=== PATIENT | male | born 1975 | race Caucasian/White ===

== ENCOUNTER → 2023-03-15 | Outpatient (CLI) | payer SELFPAY, OTHER ==
--- NOTE | 2023-03-15 09:30 | MRI_ITS ---
STUDY: MRI LEFT KNEE REASON FOR EXAM: Male, 48 years old. Pain, rule out medial meniscal tear. TECHNIQUE: Standardized fat and water weighted pulse sequences were obtained in all 3 orthogonal planes. COMPARISON: Left knee radiographs dated 11/16/2022. FINDINGS: There is degenerative free edge tearing of the posterior horn of the medial meniscus. There is mild peripheral subluxation of the body of the medial meniscus. There is moderate to severe degenerative arthrosis of the medial femorotibial compartment with joint space narrowing, marginal osteophyte formation, moderate to high-grade chondromalacia, and subchondral marrow edema on both sides of the joint. Normal medial collateral ligamentous complex (MCL). Normal distal semimembranosus, gracilis and semitendinosus tendons. Normal lateral meniscus. Normal hyaline cartilage of the lateral femorotibial compartment. Normal lateral femoral condyle and tibial plateau. Normal proximal tibiofibular articulation. Normal lateral collateral (fibular) ligament. Normal popliteus tendon. Normal biceps femoris tendon. Normal anterior cruciate ligament (ACL). Normal posterior cruciate ligament (PCL). Normal congruent patellofemoral articulation. Normal hyaline cartilage of the patellofemoral compartment. Normal medial and lateral patellar retinaculum. Normal quadriceps tendon. Normal patellar tendon. Normal Hoffa''s fat pad. There is a small joint effusion. There is no popliteal cyst. The soft tissues are unremarkable. There is no acute fracture. MRI/Lower Ext Joint Only (Routine) IMPRESSION: Degenerative free edge tearing of the posterior horn of the medial meniscus. Mild peripheral subluxation of the body of the medial meniscus. Moderate to severe degenerative arthrosis of the medial femorotibial compartment. Small joint effusion. Electronically Signed: Shawn Solano MD at 11:45 EDT ,
--- NOTE | 2023-03-15 09:30 | MRI_ITS ---
STUDY: MRI RIGHT KNEE REASON FOR EXAM: Male, 48 years old. Pain, rule out medial meniscal tear. TECHNIQUE: Standardized fat and water weighted pulse sequences were obtained in all 3 orthogonal planes. COMPARISON: Right knee radiographs dated 11/16/2022. FINDINGS: There is degenerative free edge tearing of the body and posterior horn of the medial meniscus. There is degenerative arthrosis of the medial femorotibial compartment with joint space narrowing, marginal osteophyte formation, moderate to high-grade chondromalacia, and subchondral marrow edema on both sides of the joint. Normal medial collateral ligamentous complex (MCL). Normal distal semimembranosus, gracilis and semitendinosus tendons. Normal lateral meniscus. Normal hyaline cartilage of the lateral femorotibial compartment. There is minimal osteoarthritic spur formation of the lateral knee compartment. Normal proximal tibiofibular articulation. Normal lateral collateral (fibular) ligament. Normal popliteus tendon. Normal biceps femoris tendon. Normal anterior cruciate ligament (ACL). Normal posterior cruciate ligament (PCL). There is low-grade chondromalacia along the femoral trochlea. Congruent patellofemoral articulation. Normal medial and lateral patellar retinaculum. Normal quadriceps tendon. Normal patellar tendon. Normal Hoffa''s fat pad. There is a small joint effusion. There is no popliteal cyst. The soft tissues are unremarkable. There is no acute fracture. MRI/Lower Ext Joint Only (Routine) IMPRESSION: Degenerative free edge tearing of the body and posterior horn of the medial meniscus. 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 Small joint effusion. Electronically Signed: Shawn Solano MD at 11:37 EDT ,
== END | disposition home or self-care (01) ==
PROVIDERS: PCP Family Medicine; Referring Provider Orthopaedic Surgery Sports Medicine; Visit Provider Orthopaedic Surgery Sports Medicine
DX: M25.562 Pain in left knee (principal); M25.561 Pain in right knee
CPT/HCPCS: 73721

== ENCOUNTER 2024-02-29 12:50 | Emergency (ER) | payer OTHER, SELFPAY ==
[2024-02-29 12:51] VITALS: BP 144/99; PULSE 86; RESP 22; TEMP 36.6; O2SAT 93; BMI 42.4
[2024-02-29 13:18] LABS: White Blood Cells 0 SEEN /hpf (0-5)
[2024-02-29 13:20] LABS: Absolute Lymphocyte Count 1.18 X10^3/uL (0.83-4.51); Absolute Neutrophil Count 12.4 X10^3/uL (2.0-7.7); Basophil# 0.03 X10^3/uL; Basophil% 0.2 % (0-1); Eosinophil# 0.03 X10^3/uL; Eosinophils% 0.2 % (0-5); Hematocrit 45.3 % (40-54); Hemoglobin 14.5 g/dL (13.0-16.5); Lymphocyte # 1.18 X10^3/ul (0.83-4.51); Lymphocyte % 8.3 % (19-41); Mean Corpuscular Hgb 27.7 pg (27.0-32.0); Mean Corpuscular Volume 86.5 fL (80-94); Mean Platelet Vol. 9.8 fl (6.2-12.0); Monocyte# 0.55 X10^3/uL; Monocyte% 3.8 % (0-10); NRBC Flagged by Analyzer 0 % (0-5); Neutrophil # 12.44 X10^3/uL (2.7-7.7); Neutrophil % 87.1 % (47-70); Platelet Count 257 K/mm3 (150-450); RBC Distribution Width CV 13.8 % (11.6-14.6); RBC Distribution Width SD 44.1 fl (35.1-43.9); Red Blood Count 5.24 M/mm3 (4.6-6.2); White Blood Count 14.3 K/mm3 (4.4-11.0)
[2024-02-29 13:39] LABS: AST(SGOT) 13 U/L (15-37); Alanine Aminotransfer ALT/SGPT 9 U/L (16-61); Albumin, Serum 3.8 g/dL (3.2-5.0); Alkaline Phosphatase 113 U/L (45-117); Anion Gap 6 (5-15); BUN 18 mg/dL (7-18); BUN/Creat Ratio 16.1 RATIO (10-20); Calcium,Total 9.8 mg/dL (8.5-10.1); Chloride 103 mmol/L (98-107); Creatinine, Serum 1.12 mg/dL (0.70-1.30); EST Glomerular Filtration Rate 74 mL/min (>60); Est Glom Filt Rate - Afr Amer 90 mL/min (>60); Estimated Creatinine Clearance 97.05 ml/min; Globulin 3.9 g/dL (2.2-4.2); Glucose 165 mg/dL (74-106); Potassium 3.9 mmol/L (3.5-5.1); Protein, Total 7.7 g/dL (6.4-8.2); Sodium Level 135 mmol/L (136-145)
[2024-02-29 13:43] LABS: Color, Urine Yellow (Yellow); Glucose, Dipstick Normal (Normal); Ketone-Dipstick Negative (Negative); Leukocyte Esterase-Dipstick Negative /ul (Negative); Nitrite-Dipstick Negative (Negative); Occult Blood-Urine 250 /ul (Negative); Protein-Dipstick 30 mg/dl (Negative); Specific Gravity, Urine 1.015 (1.002-1.030); Urine Bilirubin Dipstick Negative (Negative); Urine Clarity Clear (Clear); Urine Urobilinogen Normal (Normal)
[2024-02-29 13:56] LABS: Bacteria 1+ /hpf (None Seen); Mucous, Urine 2+ /hpf (<or=2+); Red Blood Cells-Urine 5-10 SEEN /hpf (0-5); Squamous Epithelial Cells - UA 0-5 SEEN /hpf (0-5)
[2024-02-29 14:10] VITALS: BP 140/86; PULSE 86; RESP 18
--- NOTE | 2024-02-29 14:27 | CT_ITS ---
STUDY: CT ABDOMEN AND PELVIS WITH CONTRAST REASON FOR EXAM: Male, 49 years old. RLQ, RUQ pain RADIATION DOSAGE (If Supplied By Facility): CTDIvol = ( 18.64 ) mGy, DLP = ( 1288.79 ) mGycm TECHNIQUE: Transaxial images were obtained from the dome of the diaphragm to the symphysis pubis without oral contrast. IV 100mL Isovue-370 was administered. Sagittal and coronal images were reconstructed. Individualized dose optimization techniques were used for this CT. COMPARISON: None. FINDINGS: The visualized lung bases show mild atelectasis or scarring. The visualized portions of the heart are within normal limits. Normal liver. Normal gallbladder and extrahepatic biliary system. Normal spleen. Normal pancreas. Normal bilateral adrenal glands. Normal right kidney. Normal left kidney. Evaluation of the GI tract is limited by absence of oral contrast. Cannot exclude stomach wall thickening. No dilated loops of bowel or evidence for obstruction. Cannot exclude segmental thickening of the huertas of the small or large bowel. Cannot exclude enteritis or colitis. Moderate diffuse fecal retention. Appendix within normal limits. Normal abdominal aorta. Normal inferior vena cava. Normal retroperitoneum. Normal urinary bladder. Normal abdominal wall. Normal osseous structures. CT/Abdomen/Pelvis W IV Cont ONLY IMPRESSION: No definite acute or significant abnormality seen. Electronically Signed: Dragan Car MD at 15:13 EDT ,
--- NOTE | 2024-02-29 14:28 | EDS_ITS ---
HPI HPI - GI History of Present Illness Chief Complaint: Abd Pain Narrative Narrative: 49-year-old male presents with abdominal pain that began around 11:00 this morning. This was 3-1/2 hours ago. He relates history that earlier this morning he was walking in the [place] and fell onto his stomach. He did not have pain then. He was not feeling well after he had a bowel movement. He might have been near syncopal, and was having a lot of abdominal pain that improved. They state that while he had surgery on his knee a few months ago, he does have past medical history of biliary sludge, and had hernia repair around his umbilicus. He denies any dysuria or hematuria, no problems with diarrhea or blood in his bowel movement. He states his abdominal pain is improving and better than what it was few hours ago. No exacerbating or alleviating factors. He states he usually can take diln-wjz-kblwzdx medications and it improves, but today it did not. PFSH PFSH Allergy/AdvReac Type Severity Reaction Status Date / Time No Known Allergies Allergy Verified 02/29/24 12:51 Social History Smoking Status: Never smoker ROS ROS ED ROS Narrative Constitutional: No fever, no chills. HEENT: No sore throat. No neck pain. No loss of vision. No rhinorrhea. Cardiovascular: No chest pain. No palpitations. No pedal edema. Respiratory: No cough, no shortness of breath. Abdominal: Right upper quadrant to epigastric and right lower quadrant abdominal pain. Positive nausea. No vomiting. No diarrhea. Genitourinary: No dysuria. No hematuria. Musculoskeletal: No myalgias. No arthralgias. Neurologic: No headaches. No dizziness. Mild lightheadedness. Skin: No rash. No change in color. Psychiatric: No depression. No anxiety. EXAM Physical Exam Narrative Exam Narrative: Afebrile. Vital signs noted. Nontoxic-appearing. Regular rate and rhythm. Lungs clear to auscultation bilaterally. Abdomen soft with mild tenderness to palpation in the epigastrium to right upper quadrant but negative Hollins sign. Mild tenderness in right lower quadrant as well, no guarding or rebound. Positive bowel sounds. Neurological examination nonfocal and nonlateralizing. Const Vital Signs: 02/29/24 12:51 02/29/24 14:10 02/29/24 15:08 Temperature 97.9 F Temperature Source Oral Pulse Rate 86 86 89 Respiratory Rate 22 H 18 18 Blood Pressure 144/99 H 140/86 H 122/75 H Blood Pressure Mean 114 104 90 Pulse Ox 93 Oxygen Delivery Method Room Air MDM MDM MDM Narrative Medical decision making narrative: Differential diagnosis includes but not limited to acute appendicitis versus diverticulitis versus cholecystitis versus ureterolithiasis versus nonspecific abdominal pain. I reviewed the laboratory work entered by RN protocol. He has slight leukocytosis of 14.3 which he think is nonspecific, hemoglobin 14.5 with hematocrit 45.3. CMP is significant for an AST low at 13 with ALT also low at 9 and alk phos normal at 113. Glucose is elevated at 165 with a normal anion gap of 6. BUN normal at 18 with creatinine 1.12, no dehydration. Urinalysis is negative for infection with 0 WBCs. I do not feel antibiotics are indicated. I will add a lipase I do feel that the patient merits CT of the abdomen pelvis with IV contrast to rule out appendicitis and to take a closer look at the gallbladder to make sure that is not distended. I reviewed his lipase and it is normal so I doubt pancreatitis. I reviewed the radiology report of the CTA of the abdomen and pelvis which shows moderate fecal retention, but no acute process, no obstruction. Appendix is visualized and appears normal. There is no distention of the gallbladder. I do not feel he requires right upper quadrant ultrasounding. Upon repeat examination at approximately 1555, he states he feels improved. I feel he can be discharged safely home with follow-up to his primary care provider. He was told he may want to start an [id number] stool softener and/or MiraLAX. Return instructions to the emergency department were reviewed. Disposition is discharged home in stable condition. History & Record Review Discussion w/independent historian: Patient and Family Lab Data Attestation: I reviewed the patient's lab results. Labs: Laboratory Results - last 24 hr 02/29/24 13:15 WBC 14.3 H RBC 5.24 Hgb 14.5 Hct 45.3 MCV 86.5 MCH 27.7 MCHC 32.0 RDW Std Deviation 44.1 H RDW Coeff of [place] 13.8 Plt Count 257 MPV 9.8 Immature Gran % (Auto) 0.400 Neut % (Auto) 87.1 H Lymph % (Auto) 8.3 L [place] % (Auto) 3.8 Eos % (Auto) 0.2 Baso % (Auto) 0.2 Absolute Neuts (auto) 12.4 H Absolute Lymphs (auto) 1.18 Nucleated RBC % 0 Sodium 135 L Potassium 3.9 Chloride 103 Carbon Dioxide 27.0 Anion Gap 6 BUN 18 Creatinine 1.12 Estim Creat Clear Calc 97.05 Est GFR (MDRD) Af Amer 90 Est GFR (MDRD) Non-Af 74 BUN/Creatinine Ratio 16.1 Glucose 165 H Calcium 9.8 Total Bilirubin 0.40 AST 13 L ALT 9 L Alkaline Phosphatase 113 Total Protein 7.7 Albumin 3.8 Globulin 3.9 Albumin/Globulin Ratio 1.0 Lipase 15 Urine Color Yellow Urine Clarity Clear Urine pH 6.0 Ur Specific [place] 1.015 Urine Protein 30 H Urine Glucose (UA) Normal Urine Ketones Negative Urine Occult Blood 250 H Urine Nitrite Negative Urine Bilirubin Negative Urine Urobilinogen Normal Ur Leukocyte Esterase Negative Urine RBC 5-10 SEEN Urine WBC 0 SEEN Ur Squamous Epith Cells 0-5 SEEN Urine Bacteria 1+ Urine Mucus 2+ Radiography Diagnostic Testing: Clinical Impression(s) from Imaging Studies Abdomen/Pelvis CT 02/29/24 14:27 IMPRESSION: No definite acute or significant abnormality seen. Electronically Signed: Dragan Car MD at 15:13 EDT , Discharge Plan Triage Chief Complaint: Abd Pain ED Provider: Tuan Rey Dx/Rx/DC Orders Clinical Impression: Abdominal pain, Leukocytosis, Constipation Instructions: ED Constipation (Adult), ED Abdominal Pain Unkn Cause Male... Primary Care Provider: Bekah Schmitz NP Referrals: Bekah Schmitz PROCESS CONTROL ENGINEER, PROCESS CONTROL ENGINEER-C [Primary Care Provider] - 3-5 Days if not improving Activity Restrictions/Additional Instructions: Start an [id number] stool softener like Colace. You may want to start taking MiraLAX [id number]-xbg-[id number] as well as directed. Return with fever, nausea and vomiting, new or worsening symptoms including increased pain. Print Language: Mongolian Disposition Disposition: Home, Self Care
[2024-02-29 15:08] VITALS: BP 122/75; PULSE 89; RESP 18
[2024-02-29 15:25] LABS: Lipase 15 U/L (13-75)
[2024-02-29] MEDS: DiphenhydrAMINE 50 MG/ML Syringe 25 MG IV (15:27)
[2024-02-29 16:32] VITALS: BP 140/94; PULSE 87; RESP 18; TEMP 36.9; O2SAT 100
== END 2024-02-29 16:33 | disposition home or self-care (01) ==
PROVIDERS: Emergency Provider Emergency Medicine; PCP Nurse Practitioner Family; Visit Provider Emergency Medicine
DX: R10.9 Unspecified abdominal pain (principal); D72.829 Elevated white blood cell count, unspecified; K59.00 Constipation, unspecified
CPT/HCPCS: 74177; 80053; 81001; 83690; 85025; 96374; 99283; Q9967; A4216